=== PATIENT | male | born 1955 | race Caucasian/White ===

== ENCOUNTER 2021-04-06 06:24 | Outpatient (CLI) | payer OTHER, SELFPAY ==
--- NOTE | 2021-04-06 06:35 | USCV_ITS ---
Jonathan Stokes Age: 65 Gender: M : 1955 Exam Date: 04/06/2021 07:18 Ordering Phys: Carin Strickland MD Technologist: Luciano Ventura [place] [facility] [place]: HX OF CVA/CAD Risk Factors: HX OF CVA/CAD Previous Vascular Surgery: Right Brachial BP: / Left Brachial BP: / Right Left Velocity (cm/s) Spectral Plaque Velocity (cm/s) Spectral Plaque Syst/Diast Broadening Syst/Diast Broadening 90.40/ 13.20 Prox CCA 97.40 / 17.10 90.40/ 15.40 Mid CCA 69.20 / 13.70 57.30/ 11.00 Distal CCA 97.40 / 21.40 69.90/ 8.50 Prox ICA 66.70 / 20.50 55.20/ 17.90 Mid ICA 72.60 / 23.10 59.00/ 19.40 Distal ICA 68.40 / 25.60 66.80 ECA 91.40 0.77 ICA/CCA 0.90 Antegrade Vertebral Antegrade 24.10/ 5.40 cm/s 23.90/ 6.00 cm/s Subclavian 59.80 131.5 0 FINDINGS Intimal thickening and minimal plaques of the bifurcations bilaterally Intimal thickening in the common carotid arteries bilaterally. Antegrade flow in the vertebral arteries bilaterally. CONCLUSIONS Intimal thickening and minimal plaques at the bifurcations bilaterally suggesting less than 50% stenosis. Intimal thickening in the common carotid arteries bilaterally. No significant stenosis in the external carotid, subclavian and vertebral arteries bilaterally, based on the above findings Dr Bailey Baldwin MD [facility] (Electronically Signed) Final Date: 08 April 2021 18:33 S
== END 2021-04-06 06:25 | disposition home or self-care (01) ==
PROVIDERS: PCP Family Medicine; Visit Provider Family Medicine
DX: Z86.73 Personal history of transient ischemic attack (TIA), and cerebral infarction without residual deficits (principal); I25.10 Atherosclerotic heart disease of native coronary artery without angina pectoris; I65.23 Occlusion and stenosis of bilateral carotid arteries
CPT/HCPCS: 93880

== ENCOUNTER 2022-04-26 10:30 | Outpatient (CLI) | payer OTHER, SELFPAY ==
--- NOTE | 2022-04-26 10:39 | USCV_ITS ---
Jonathan Stokes Age: 66 Gender: M : 1955 Exam Date: 04/26/2022 11:29 Ordering Phys: Carin Strickland MD Technologist: JACEY [place] [facility] [place]ication: AAA Screening HISTORY: Diameter (cm) AP x Transverse x Length Velocity (cm/s) Waveform Prox Aorta: 2.13 x 2.48 x 74.50 Triphasic Mid Aorta: 2.01 x 1.87 x 91.70 Triphasic Distal Aorta: 2.00 x 2.06 x 98.90 Triphasic Right Iliac Prox: 1.36 x 1.27 x 133.20 Triphasic Left Iliac Prox: 1.27 x 1.33 x 170.50 Triphasic Stent Prox Landing x x Aneurysmal Sac Max x x Lt Lat Sac Dim Rt Lat Sac Dim Stent Dist Landing x x Right Iliac Stent x x Left Iliac Stent x x Right Renal Art Left Renal Art FINDINGS: CONCLUSIONS No evidence of abdominal aortic or bilateral iliac aneurysm. Chintan Ann MD (Electronically Signed) Final Date: 26 April 2022 12:40 S
== END 2022-04-26 10:31 | disposition home or self-care (01) ==
LOC: RAD 10:34
PROVIDERS: PCP Family Medicine; Visit Provider Family Medicine
DX: Z13.6 Encounter for screening for cardiovascular disorders (principal)
CPT/HCPCS: 76706